=== PATIENT | male | born 1975 | race Caucasian/White ===

== ENCOUNTER 2025-06-12 08:33 | Outpatient (CLI) | payer BC ==
[2025-06-12 09:06] LABS: #Basophils 0.05 10x3/uL (0.0-0.2); #Eosinophils 0.13 10x3/uL (0.0-0.7); #Monocytes 0.53 10x3/uL (0.11-0.59); #Neutrophils 4.56 10x3/uL (1.40-6.50); %Basophils 0.7 % (0.0-1.0); %Eosinophils 1.9 % (0.0-10.0); %Lymphocytes 24.1 % (21.0-51.0); %Monocytes 7.6 % (0.0-10.0); %Neutrophils 65.4 % (42.0-75.0); Hematocrit 42.4 % (42.0-52.0); Hemoglobin 13.9 g/dL (14.0-18.0); Mean Corpuscular Hemoglobin 29.2 pg (27.0-31.0); Mean Corpuscular Volume 89.1 fL (78.0-98.0); Platelet Count 290 10x3/uL (130-400); Red Blood Cell (RBC) Count 4.76 mill/uL (4.70-6.10); White Blood Cell (WBC) Count 6.97 10x3/uL (4.8-10.8)
[2025-06-12 09:11] LABS: Bacteria/HPF None Seen HPF (None Seen); Glucose, Urine (Dipstick) Normal (Negative); Leukocyte Negative Leu/uL (Negative); Protein, Urine (Dipstick) Negative (Neg-Trace); RBC/HPF 0-3 HPF (0-3); Specific Gravity, Urine 1.010 (1.002-1.036); WBC/HPF None Seen HPF (0-3)
[2025-06-12 09:20] LABS: INR-International Normal Ratio 1.0; Prothrombin Time 13.0 sec (12.0-14.7)
[2025-06-12 09:21] LABS: PTT 32.2 sec (22.9-36.1)
[2025-06-12 09:23] LABS: Anion Gap 13 mmol/L (10-20); BUN (Urea Nitrogen) 15 mg/dL (8.9-20.6); Calc. Creatinine Clearance 0 mL/min (70-130); Calcium 8.8 mg/dL (7.8-10.44); Carbon Dioxide 24 mmol/L (22-29); Chloride 103 mmol/L (98-107); Glucose 107 mg/dL (70-105); Potassium 3.6 mmol/L (3.5-5.1); Sodium 136 mmol/L (136-145)
== END 2025-06-12 08:34 | disposition home or self-care (01) ==
LOC: LABBT 08:33
PROVIDERS: ATTEND Urology
DX: Z01.818 Encounter for other preprocedural examination (principal); R97.20 Elevated prostate specific antigen [PSA]
CPT/HCPCS: 80048; 81001; 85025; 85610; 85730; 87086; 93005; 93010

== ENCOUNTER 2025-06-22 06:19 | Day surgery (SDC) | payer BC ==
[2025-06-12 08:47] VITALS: BMI 23.0
[2025-06-22] MEDS ORDERED: cefTRIAXone (ROCEPHIN) 1 GM VIAL ONE (09:57)
[2025-06-22] MEDS ORDERED: Lidocaine 1% PF 5 ML VIAL ONE (10:30)
[2025-06-22] MEDS ORDERED: PROPOFOL 20 ML ONE ×2 (10:30)
[2025-06-22] MEDS ORDERED: Glycopyrrolate 0.2 MG/ML 5 ML SYRINGE ONE (10:33)
[2025-06-22] MEDS ORDERED: Lidocaine 2% 6 ML (Jelly) SYR ONE (11:13)
== END 2025-06-22 13:02 | disposition home or self-care (01) ==
LOC: SDC 06:19
PROVIDERS: ATTEND Urology
PROC: 0VB03ZX Excision of Prostate, Percutaneous Approach, Diagnostic (ICD-10-PCS; principal; 2025-06-22)
DX: D29.1 Benign neoplasm of prostate (principal); R97.20 Elevated prostate specific antigen [PSA]; I10 Essential (primary) hypertension
CPT/HCPCS: 76872; G0416; J0696; J1100; J2250; J2704

== ENCOUNTER 2025-07-30 08:21 | Outpatient (CLI) | payer BC ==
[2025-07-30 09:35] LABS: Estimated GFR - POC 92.0
== END 2025-07-30 08:22 | disposition home or self-care (01) ==
LOC: SCSMRI 08:21
PROVIDERS: ATTEND Urology
DX: C61 Malignant neoplasm of prostate (principal)
CPT/HCPCS: 36415; 72197; 82565